=== PATIENT | female | born 1970 | race Caucasian/White ===

== ENCOUNTER → 2019-12-29 09:10 | Outpatient (BNVA) | payer MEDICARE, SELFPAY | PROVIDERS: PCP Family Medicine; Visit Provider Orthopaedic Surgery | DX: M25.521 Pain in right elbow (principal); M19.021 Primary osteoarthritis, right elbow | CPT/HCPCS: 73080 ==

== ENCOUNTER → 2025-03-24 08:07 | Outpatient (BNVA) | payer MEDICARE, SELFPAY | PROVIDERS: PCP Nurse Practitioner; Visit Provider Nurse Practitioner | DX: M25.561 Pain in right knee (principal); M25.562 Pain in left knee; Z96.659 Presence of unspecified artificial knee joint; T84.84XA Pain due to internal orthopedic prosthetic devices, implants and grafts, initial encounter; G89.29 Other chronic pain; X58.XXXA Exposure to other specified factors, initial encounter | CPT/HCPCS: 73560; 73565; 99204 ==

== ENCOUNTER 2025-03-25 06:00 | Outpatient (RCR) | payer MEDICARE, SELFPAY | END 2025-04-18 23:59 | disposition home or self-care (01) | LOC: GPT 06:00 | PROVIDERS: PCP Nurse Practitioner; Visit Provider Nurse Practitioner | DX: M54.50 Low back pain, unspecified (principal) | CPT/HCPCS: 97110; 97112; 97140; 97161 ==

== ENCOUNTER 2025-04-07 06:00 | Outpatient (RCR) | payer MEDICARE, SELFPAY | END 2025-04-18 23:59 | disposition home or self-care (01) | LOC: GPT 06:00 | PROVIDERS: PCP Nurse Practitioner; Visit Provider Nurse Practitioner | DX: M25.561 Pain in right knee (principal); M25.562 Pain in left knee; G89.29 Other chronic pain | CPT/HCPCS: 97110; 97112; 97161 ==

== ENCOUNTER 2025-04-08 07:42 | Outpatient (CLI) | payer MEDICARE, SELFPAY ==
--- NOTE | 2025-04-08 08:00 | NM_ITS ---
WS: [id number] THREE-PHASE BONE SCAN HISTORY: Painful FLORENCIO TKA COMPARISON: Radiographs 03/24/2025 Patient is is injected with 25.3 mCi Tc99m HDP intravenously. Immediate angiographic phase imaging is performed over the area of concern. Static blood pool imaging also performed. Two-hour whole-body scintigrams performed in anterior and posterior projections. Additional large field of view imaging sub mitted as necessary. Angiographic and blood pool phase images of the knees are negative. Photopenic defects bilaterally from the total knee replacements. On the 2-hour delayed imaging there is a tiny focus of increased uptake involving the RIGHT knee associated with the patella. This is an moderate increased uptake and is probably related to arthritis or enthesopathy as seen on the radiographs. No convincing evidence for loosening or infection. Bilateral osteoarthritic uptake involving the ankles. Mild AC joint arthritis. No spine or rib abnormalities. Normal soft tissue uptake. Both kidneys are identified. NM/NM bone 3 phase 73409 IMPRESSION: 1. No evidence for osteomyelitis or cellulitis involving the knees. 2. Tiny focus of increased uptake involving the RIGHT patella. Very nonspecifi c and probably related to arthritis or enthesopathy as seen on radiograph.
== END 2025-04-08 07:43 | disposition home or self-care (01) ==
LOC: RAD 07:48
PROVIDERS: PCP Nurse Practitioner; Visit Provider Nurse Practitioner
DX: T84.84XA Pain due to internal orthopedic prosthetic devices, implants and grafts, initial encounter (principal); Z96.653 Presence of artificial knee joint, bilateral
CPT/HCPCS: 78315; A9561

== ENCOUNTER 2025-04-19 06:30 | Outpatient (RCR) | payer MEDICARE, SELFPAY | END 2025-05-18 23:59 | disposition home or self-care (01) | LOC: GPT 06:30 | PROVIDERS: PCP Nurse Practitioner; Visit Provider Nurse Practitioner | DX: M25.561 Pain in right knee (principal); M25.562 Pain in left knee; G89.29 Other chronic pain | CPT/HCPCS: 97110; 97140 ==

== ENCOUNTER 2025-04-19 06:30 | Outpatient (RCR) | payer MEDICARE, SELFPAY | END 2025-05-18 23:59 | disposition home or self-care (01) | LOC: GPT 06:30 | PROVIDERS: PCP Nurse Practitioner; Visit Provider Nurse Practitioner | DX: M54.50 Low back pain, unspecified (principal) | CPT/HCPCS: 97110; 97140 ==

== ENCOUNTER → 2025-04-23 08:18 | Outpatient (BNVA) | payer MEDICARE, SELFPAY | PROVIDERS: PCP Nurse Practitioner; Visit Provider Nurse Practitioner | DX: M25.561 Pain in right knee (principal); M25.562 Pain in left knee; G89.29 Other chronic pain | CPT/HCPCS: 99214 ==

== ENCOUNTER → 2025-06-04 09:40 | Outpatient (BNVA) | payer MEDICARE, SELFPAY | PROVIDERS: PCP Nurse Practitioner; Visit Provider Nurse Practitioner | DX: M25.562 Pain in left knee (principal); G89.29 Other chronic pain; Z96.659 Presence of unspecified artificial knee joint | CPT/HCPCS: 99214 ==

== ENCOUNTER → 2025-06-28 08:55 | Outpatient (BNVA) | payer MEDICARE, SELFPAY | PROVIDERS: PCP Nurse Practitioner; Visit Provider Nurse Practitioner | DX: Z01.818 Encounter for other preprocedural examination (principal); T84.093A Other mechanical complication of internal left knee prosthesis, initial encounter; Z96.652 Presence of left artificial knee joint; Y79.2 Prosthetic and other implants, materials and accessory orthopedic devices associated with adverse incidents | CPT/HCPCS: 20610; 36415; 73560; 73565; 80053; 81001; 85025; 99214 ==

== ENCOUNTER 2025-07-06 15:26 | Outpatient (CLI) | payer MEDICARE, SELFPAY ==
--- NOTE | 2025-07-06 16:15 | CT_ITS ---
WS: [id number] CT LEFT KNEE, NONCONTRAST [facility] TECHNIQUE: Noncontrast CT of the LEFT knee to include the LEFT hip and ankle. CLINICAL INFORMATION: PER [facility] PROTOCOL DLP: 987.[address] scans at [facility] use at least one of these dose optimization techniques: automated exposure control; mA and/or kV adjustment per patient size (includes targeted exams where dose is matched to clinical indication); or iterative reconstruction. FINDINGS: Prior postoperative changes bilateral TKAs. Degenerative arthritis sacroiliac joints. Mild to moderate degenerative narrowing both hips. Moderate LEFT suprapatellar effusion. Postoperative changes LEFT TKA with patellar resurfacing. CT/CT knee LT [facility] [id number] IMPRESSION: Images obtained for preoperative purposes.
== END 2025-07-06 15:27 | disposition home or self-care (01) ==
LOC: RAD 15:27
PROVIDERS: PCP Nurse Practitioner; Visit Provider Specialist
DX: Z96.653 Presence of artificial knee joint, bilateral (principal); T84.093A Other mechanical complication of internal left knee prosthesis, initial encounter; X58.XXXA Exposure to other specified factors, initial encounter; Z98.890 Other specified postprocedural states; M46.1 Sacroiliitis, not elsewhere classified; M16.0 Bilateral primary osteoarthritis of hip; M25.462 Effusion, left knee
CPT/HCPCS: 73700

== ENCOUNTER 2025-07-20 16:12 | Inpatient (IN) | payer MEDICARE, SELFPAY ==
[2025-07-20] VITALS (14 sets, daily range): BP systolic 84–115; BP diastolic 58–87; PULSE 88–108; RESP 9–18; TEMP 36.3–37.5; O2SAT 94–99; BMI 36.6
--- NOTE | 2025-07-20 10:27 | W.PM.OPSUD ---
Surgery/Procedure H&P Update DATE OF PROCEDURE: July 20, 2025 DATE H&P PERFORMED: 06/28/25 H&P UPDATE INFORMATION: I have reviewed H&P completed within last 30 days, I have examined patient prior to procedure, No changes to prior documentation, H&P to be scanned into chart and Risks and benefits of the procedure reviewed PLANNED PROCEDURE: Operation Date: 07/20/25 11:55 Proposed Procedures p Total Knee Arthroplasty Revision(Left) - Ena Coppola MD s Casey Robot Total Knee Arthroplasty Robotic Total Knee Replacement(Left) - Ena Coppola MD Related Problem List Diagnoses 1. Chronic knee pain after total replacement of left knee joint: 2. Failed total left knee replacement, initial encounter: Qualifiers: Encounter type: initial encounter
[2025-07-20] MEDS: acetaminophen 1,000 MG/100 ML PIGGYBACK 400 MG IV ×2 (10:37→21:38)
--- NOTE | 2025-07-20 10:50 | ANES.PREANE2 ---
Pre-Anesthetic Assessment Height/Weight: Height 1.63 m Weight 96.615 kg Temp Pulse Resp BP Pulse Ox O2 Del Method 97.4 F L 88 18 106/87 99 Room Air 07/20/25 10:27 07/20/25 10:27 07/20/25 10:27 07/20/25 10:27 07/20/25 10:27 07/20/25 10:27 Operation Date: 07/20/25 11:55 Proposed Procedures p Total Knee Arthroplasty Revision(Left) - Ena Coppola MD s Casey Robot Total Knee Arthroplasty Robotic Total Knee Replacement(Left) - Ena Coppola MD Familial anesthetic complications: None Was Beta Shahrzad taken within 24 hours: N/A Was Clonidine taken within 24 hours: N/A Last intake: Intake Last Liquid Date 07/19/25 Last Liquid Time 22:00 Last Solid Date 07/19/25 Last Solid Time 22:00 Social Tobacco and No alcohol Exam alert, oriented x 3, clear to auscultation bilaterally and regular rate & rhythm Airway Mallampati: Class IV Dentition: false CV/HEM Hypertension Metabolic Hyperlipidemia and Morbid Obesity Neuropsych Seizure (conversion d/o - none in years) Anesthetic Plan ASA status: 3 Anesthesia: General Risk of > 500 ml blood loss (7ml/kg in children): No Medications/Allergies Home Medications ?Medication ?Instructions ?Recorded ?Confirmed ?Last Taken ?Type aspirin 81 mg tablet,delayed 81 mg PO DAILY 10/01/19 07/19/25 07/12/25 History release (Adult Aspirin Regimen) furosemide 20 mg tablet 20 mg PO DAILY 10/01/19 07/19/25 07/19/25 History metoprolol tartrate 50 mg tablet 50 mg PO BID 10/01/19 07/20/25 07/20/25 History nitroglycerin 0.4 mg sublingual 0.4 mg sublingual Q5M PRN Chest 10/01/19 07/19/25 Unknown History tablet Pain potassium chloride 10 mEq 10 meq PO DAILY 10/01/19 07/19/25 07/19/25 History tablet,extended release (Klor-Con) ropinirole 0.5 mg tablet 0.5 mg PO DAILY 10/01/19 07/20/25 07/20/25 History meloxicam 7.5 mg tablet 7.5 mg PO DAILY #90 tabs 03/29/25 07/19/25 07/12/25 Rx amlodipine 5 mg tablet 5 mg PO DAILY 07/19/25 07/20/25 07/20/25 History rosuvastatin 20 mg tablet 20 mg PO DAILY 07/19/25 07/19/25 07/19/25 History semaglutide 2 mg/dose (8 mg/3 mL) 2 mg SUBCUT .WEEKLY 07/19/25 07/19/25 07/11/25 History subcutaneous pen injector (Ozempic) Allergies Allergy/AdvReac Type Severity Reaction Status Date / Time codeine Allergy ALGY-Swell Verified 07/19/25 11:19 Lip/Tongue/Throat lisinopril Allergy ALGY-Swell Verified 07/19/25 11:19 Lip/Tongue/Throat Current Medications Generic Name Dose Route Start Last Admin Trade Name Freq PRN Reason Stop Dose Admin Sodium Chloride 1,000 mls @ 30 mls/hr 07/20/25 10:15 07/20/25 10:36 Sodium Chloride 0.9% IV 07/21/25 10:14 30 mls/hr .Q24H TIGRE Administration PFSH Anesthesia Medical History (Updated 07/20/25 @ 10:31 by Ena Coppola MD) History of myocardial infarction Essential hypertension Surgical History History of knee replacement, total Surgery: Right and Left total knee arthroplasties in 2018. (4-6 months apart) Surgeon: Dr. Anil Harrison MD in [place], [place] Family History Mother Heart disease Social History Smoking and tobacco/nicotine status: never used tobacco/nicotine Alcohol intake: current Alcohol intake frequency: holidays/special occasions only
[2025-07-20] MEDS: tranexamic acid 1,000 mg/10mL SDV 1000 MG IV (13:27)
[2025-07-20] MEDS: BUPivacaine liposome 13.3 mg/mL SDV 20 mL 266 MG INJECTION (14:45)
[2025-07-20] MEDS: BUPivacaine 0.5% INJ 10 mL 20 ML INJECTION (14:45)
[2025-07-20] MEDS: ceFAZolin 2,000 mg SDV 2000 MG IVP ×2 (15:53→19:35)
[2025-07-20] MEDS: ceFAZolin 1,000 mg SDV 1000 MG (15:56)
[2025-07-20 16:22] LABS: Hematocrit 36.0 % (36-47); Hemoglobin 12.20 g/dL (11.27-16.99)
[2025-07-20 17:11] LABS: Hematocrit 31.4 % (36-47); Hemoglobin 10.40 g/dL (11.27-16.99); Mean Corpuscular HGB Conc 33.1 g/dL (30-55); Mean Corpuscular Hemoglobin 31.8 pg (27-33); Mean Corpuscular Volume 96.0 fl (85-98); Nucleated Red Blood Cells % 0 %; Platelet Count 312 10^3/cmm (157-399); Red Blood Count 3.27 10^6/uL (3.85-5.65); White Blood Count 18.27 10^3/uL (3.29-11.43)
--- NOTE | 2025-07-20 17:16 | PC.NURSE ---
Benjie, patient's family member, notified via phone of surgical status
[2025-07-20 18:07] LABS: Hematocrit 30.1 % (36-47); Hemoglobin 9.90 g/dL (11.27-16.99)
--- NOTE | 2025-07-20 18:49 | P.OP_ITS ---
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 Lysis of the lateral femoral condyle. Procedure done: Left total knee revision including removal of cemented femoral and tibial components with revision to a total stabilizer left total knee arthroplasty, deepa ented Implants: The [place] total knee system with a size 3 universal cemented triathlon tibial baseplate with a tibial symmetric cone augment size A and a fluted noncemented stem size 10 mm x 100 mm, triathlon X3 total stabilizer plus tibial insert size 3 x 13 mm. A size 4 triathlon total stabilizer femoral component with size 4 x 10 mm distal femoral augments medially and laterally, and size 4 x 5 mm posterior femoral augments medially and laterally with a size 16 x 100 mm fluted noncemented stem. Polyethylene patellar implant was maintained. Specimens removed/disposition: Left knee synovium as well as discolored left knee synovium sent for pathology and culture, femoral and tibial bone sent to pathology and for culture Pathology: Left knee synovium, femoral and tibial bone for microscopic evaluation Surgeon: Ena Coppola MD Digital Music Instructor: Funmi Melo, nurse practitioner who services were required for retraction, exposure, closure, and completion of the surgical procedure Anesthesia: General (Intubated, ASA 3) Estimated blood loss (mL): 1,500 Tourniquet time (min): 0 (Not utilized) IV fluids (mL): 2,000 (With albumin 250 cc and 2 units of packed red blood cells) Urine output (mL): 200 Complications: None Findings: Significant synovitis and areas of discolored synovitis. No evidence of infection. Femoral component appeared somewhat loose. Tibial component was well-fixed. Patellar component was intact with no need to revise. Condition: stable Disposition: PACU (Then to floor for postoperative rehabilitation and pain management) Brief History: This 55-year-old woman underwent bilateral total knee arthroplasties with Dr. Harrison in [place] several years ago. The patient states that she never had relief of pain from her knees, but her left knee was much worse than her right. After discussion, the patient noted that she was miserable and wished to proceed with operative interventions if indicated. She had a workup including a triphase bone scan. She also had Synovasure DNA for possible bacterial presents. These markers were negative. At the time of obtaining fluid for the Synovasure kit, I injected lidocaine, and the patient had complete relief of her pain. After this, we proceeded to discuss revision total knee arthroplasty with removal of components and revision to a Zac total knee arthroplasty. Risks and complications were discussed in detail with the patient. Consents were signed and questions were answered. She was scheduled to proceed with surgery. Procedure: The patient was brought to the operating theater, and after undergoing adequate general anesthesia, intubated, ASA 3, the left lower extremity was prepped with Dura-Prep and draped in usual fashion following placement of a tourniquet high on the leg. The leg was then draped free.? A surgical pause was performed. At the time of the surgical pause, we confirmed the site and side of surgery. Additionally, we confirmed the prophylactic antibiotic, Ancef 2 g, was held until after intraoperative cultures were obtained. Transexemic acid 1 g with an additional gram of Transexemic acid being given at the end of the surgical procedure. The availability of equipment was confirmed, and the patient's identity was verbalized as well. Following the surgical pause, an incision was made through the patient's prior incision continuing proximally and distally as necessary to allow access to the knee joint. Dissection continued through skin and soft tissues using a scalpel. Hemostasis was obtained using electrocautery. The skin incision was followed by a median parapatellar arthrotomy. Once the knee joint was entered, there was noted to not be significant fluid, but there was significant synovitis and there were areas of a brownish discolored synovitis. Synovitis as well as the brownish colored synovial material was obtained and sent to pathology in 2 separate specimens and also was to be cultured. With some difficulty, the scarring within the knee was removed. We worked to remove scarring around the patellar tendon and also over the anterior femur as well as medially and laterally. This was required to be able to expose the knee joint. Once the soft tissues were removed, the patella was more pliable and able to be placed laterally to allow access to the knee joint. The femur was then exposed. The tibial tray was removed, and attention was directed to the femoral component. A combination of osteotomes and an oscillating saw was used to remove the femoral component. These were passed between the femur and the bone through the cement. Laterally, there was significant softness to the bone with evidence of bony lysis. The femoral component was removed with minimal bone loss. The central cement plug was also removed. After the femur had been thus prepared, attention was directed to the tibia. With significant difficulty, but in a similar fashion, the tibial tray was also loosened from bone with a combination of osteophytes and an oscillating saw. It was quite difficult to get the tibial tray removed. But again, it was removed with minimal bone loss. At that point, cultures of the femoral bone and tibial bone were obtained as well as specimen sent to pathology. At this point, cement was also removed from the proximal tibia which had been around the stem. Preparation was then made for the revision components. Initially, attention was directed to the proximal tibia. We were able to pass a reamer into the proximal tibia. This was then reamed slightly larger and we were able to ream to a size 10 reamer. The size 10 reamer was left in position. It was noted to be quite secure. The tibial jig was then passed over the top of the reamer and a freshening cut was made in the proximal tibia to smooth the surface and prepare good bone for medical receptionist of the revision component. While the reamer was in place, we also reamed to allow for the symmetric cone augment. We were only able to ream to a size A. Trial augment was placed into position. The proximal tibia was measured and measured a size 3, but the removed tray had been a size 4. The size 3 tray was then pinned into position and after removal of the reamer, the proximal tibia was reamed and broached. Following this, attention was directed to the femur. Once again, a reamer was placed into the distal femur. We were able to ream to a size 16. Once this reamer was in place, the distal femoral jig was placed in position. The distal femur was freshened and the four-way cutting block was then placed into position. This cutting block included anterior posterior and chamfer cuts. We were able to make these cuts, but this jig demonstrated that we did not need a posterior femoral augment size 5 mm. This construct was placed into position. Trial reductions were accomplished with this construct with tibia, and there was a slight imbalance between the extension and flexion gaps, therefore, initially, we placed 5 mm distal femoral augments both medially and laterally but subsequently increased them to 10 mm augments. With a 10 mm augments and placed distally and the 5 mm augments posteriorly further trial reduction was accomplished. With a size 13 mm posterior stabilized subsequently changed to a total stabilizer component, we had excellent extension, full flexion, good tracking of the patella, and it was felt that these were the appropriate components. At that point, trial components were removed. But prior to removal, we did evaluate the patella and decision was made to not proceed with patellar revision. A large amount of scar tissue was removed from around the patella and it is likely that this will manage the patient's anterior pain. It was felt that the risk of removal of the patella and complication from this was much greater than leaving the patella as it did not appear loose. The components were obtained and were assembled on the table prior to mixing cement. The surfaces were irrigated in preparation for cementing. All surfaces were dried. Following this, cement was mixed. The tibia was cemented into position followed by the femur. These were held in place until the cement had fully cured. We did extend the knee for the curing process once the tibial insert was in place. The tibial insert was a 13 mm total stabilizer. Once the cement fully cured, the knee was placed through range of motion. The patella was still noted to track nicely. It was also sitting in appropriate position. Services were evaluated for excess cement, and finding none, the wound was copiously irrigated. The post for the total stabilizer components was placed into position prior to closure. The knee was irrigated with Betadine, Exparel was injected, and closure was accomplished. Attention was then directed to closure. Closure was accomplished with 0 Vicryl in the fascial tissues supplemented with #1 Monocryl STRATAFIX.? Following this, a 2-0 Monocryl STRATAFIX was used in the subcutaneous tissues, and the skin was closed with 3-0 Monocryl STRATAFIX. A sterile dressing was then placed consisting of Dermabond Prineo, Op Site, sterile soft roll, and an Sherif wrap. The patient was returned the Recovery Room in a satisfactory condition. X-rays were obtained there.? Specimens are outlined above and include multiple synovial and bone specimens for pathology and for culture. The patient will be discharged to the floor for postoperative rehabilitation and pain management. Related Problem List Diagnoses 1. Chronic knee pain after total replacement of left knee joint: 2. Failed total left knee replacement, initial encounter: 3. History of total bilateral knee replacement:
--- NOTE | 2025-07-20 19:21 | XRR_ITS ---
PROCEDURE INFORMATION: Exam: XR Left Knee Exam date and time: 07/20/2025 8:19 PM Age: 55 years old Clinical indication: Device placement; Joint replacement hardware; Prior surgery; Surgery date: Post-operative (0-2 days); Surgery type: Post op lt knee; Additional info: Status post left total knee arthroplasty revision TECHNIQUE: Imaging protocol: Radiologic exam of the left knee. Views: 1 or 2 views. COMPARISON: CT knee LT [facility] [id number] 07/06/2025 4:01 PM FINDINGS: Bones/joints: Status post total left knee arthroplasty revision with new hardware with normal anatomic alignment and expected postoperative changes. Soft tissues: Normal. XR/XR knee LT 1-2V [id number] IMPRESSION: Status post total left knee arthroplasty revision with new hardware with normal anatomic alignment and expected postoperative changes.
--- NOTE | 2025-07-20 20:05 | ANE.PACU2 ---
Inpatient post-anesthesia follow up: Airway intact: Yes Vital signs: Temperature 97.7 F Pulse Rate 92 Respiratory Rate 18 Blood Pressure 110/74 Pulse Oximetry 95 Oxygen Delivery Me thod Nasal Cannula Oxygen Flow Rate 0.5 Fraction of Inspir ed Oxygen Hydration adequate: Yes Nausea and vomiting: No Pain level: 2 Mental status: Baseline
--- NOTE | 2025-07-20 20:13 | PC.NURSE ---
2005 - accepted into room 271 with Francisca at side - pt at 3L NC 97% - pulse 107 - temp 97.6 - BP 97/60 - no distress in pt noted upon this nurse exiting care - left knee dressing c/d/i with first ice in place - pt alert and orientated at present time
[2025-07-20] MEDS: tranexamic acid 1,000 MG/100 ML PREMIX 600 MG IV (22:08)
[2025-07-20] MEDS: chlorhexidine gluconate 0.12% Btl 473 mL 30 ML MUCOUS MEM (22:13)
[2025-07-20] MEDS: oxyCODONE 5 mg IR Tab/Cap PO (23:02)
--- NOTE | 2025-07-20 23:29 | PM.CONSULT ---
Providers/Reason For Consult Consulting Physician/Specialty*: Tristan Elliott MD Reason for Consult*: Medical co-management Requesting Physician: Ena Coppola MD Attending Physician: Ena Coppola MD Primary Care Provider: BUNNY King History of Present Illness History of Present Illness Nhung Buck is a 55 year old female with CAD and chronic knee pain who presented to out facility for elective left total knee replacement on 07/20/25. During surgery, patient had reported EBL of 1500cc. Hospitalist consulted was request for medical co-management. Patient reported no concerning symptoms prior to surgery that were unrelated to her knee. During my encounter, patient had no complaints. She denies any sensation of weakness of dizziness. Medications/Allergies Home Medications ?Medication ?Instructions ?Recorded ?Confirmed ?Last Taken ?Type aspirin 81 mg tablet,delayed 81 mg PO DAILY 10/01/19 07/19/25 07/12/25 History release (Adult Aspirin Regimen) furosemide 20 mg tablet 20 mg PO DAILY 10/01/19 07/19/25 07/19/25 History metoprolol tartrate 50 mg tablet 50 mg PO BID 10/01/19 07/20/25 07/20/25 History nitroglycerin 0.4 mg sublingual 0.4 mg sublingual Q5M PRN Chest 10/01/19 07/19/25 Unknown History tablet Pain potassium chloride 10 mEq 10 meq PO DAILY 10/01/19 07/19/25 07/19/25 History tablet,extended release (Klor-Con) ropinirole 0.5 mg tablet 0.5 mg PO DAILY 10/01/19 07/20/25 07/20/25 History meloxicam 7.5 mg tablet 7.5 mg PO DAILY #90 tabs 03/29/25 07/19/25 07/12/25 Rx amlodipine 5 mg tablet 5 mg PO DAILY 07/19/25 07/20/25 07/20/25 History rosuvastatin 20 mg tablet 20 mg PO DAILY 07/19/25 07/19/25 07/19/25 History semaglutide 2 mg/dose (8 mg/3 mL) 2 mg SUBCUT .WEEKLY 07/19/25 07/19/25 07/11/25 History subcutaneous pen injector (Ozempic) Allergies Allergy/AdvReac Type Severity Reaction Status Date / Time codeine Allergy KISHANY-Lauriell Verified 07/19/25 11:19 Lip/Tongue/Throat lisinopril Allergy ALGY-Swell Verified 07/19/25 11:19 Lip/Tongue/Throat Current Medications Generic Name Dose Route Start Last Admin Trade Name Freq PRN Reason Stop Dose Admin Celecoxib 200 mg 07/20/25 20:50 07/20/25 21:38 Celecoxib 200 Mg Capsule PO 200 mg Q12H TIGRE Administration Chlorhexidine Gluconate 30 ml 07/20/25 23:00 07/20/25 22:13 Chlorhexidine Gluconate 0.12% Btl 473 Ml MUCOUS MEM 30 ml QID TIGRE Administration Acetaminophen 1,000 mg in 100 mls @ 400 mls/hr 07/20/25 20:50 07/20/25 22:08 Acetaminophen IV 07/21/25 13:04 Infused Q8H TIGRE Infusion Oxycodone HCl 5 - 10 mg 07/20/25 20:50 07/20/25 23:02 Oxycodone 5 Mg Ir Tab/Cap PO 5 mg Q4H PRN Administration MODERATE TO SEVERE PAIN PFSH Acute PFSH: Medical History (Updated 07/21/25 @ 05:54 by Tristan Elliott MD) History of myocardial infarction Essential hypertension Surgical History (Updated 07/21/25 @ 05:54 by Tristan Elliott MD) History of total bilateral knee replacement Surgery: Right and Left total knee arthroplasties in 2018. (4-6 months apart) Surgeon: Dr. Anil Harrison MD in [place], [place] Family History Mother Heart disease Social History Smoking and tobacco/nicotine status: never used tobacco/nicotine Alcohol intake: current Alcohol intake frequency: holidays/special occasions only Vitals/I&O/Wt Last Vital Signs Temp 97.6 F 07/20/25 20:50 Pulse 106 H 07/20/25 20:50 Resp 16 07/20/25 23:02 BP 92/58 07/20/25 20:50 Pulse Ox 98 07/20/25 20:50 O2 Del Method Nasal Cannula 07/20/25 20:50 O2 Flow Rate 3 07/20/25 20:00 07/20/25 07/20/25 07/21/25 14:59 22:59 06:59 Intake Total 3300 / 3300 Output Total 1900 / 1900 Balance 1400 / 1400 Weight last 48 hrs Weight 96.615 kg Physical Exam Const: COMMON NORMALS: no acute distress and patient oriented x3 Resp: COMMON NORMALS: normal respiratory effort and No use of accessory muscles Cardio: OTHER: Tachycardic but regular. No MRG Extremity: OTHER: Left lower extremity is in an [place] wrap Neuro: COMMON NORMALS: patient oriented x3 Urinary Catheter Management: Keller: Cath Placed During This Visit: yes Urinary Catheter Date of Insertion: 07/20/25 Urinary Catheter Time of Insertion: 13:13 Data 07/20/25 17:52 Micro: Microbiology 07/20/25 15:51 Gram Stain - Final Bone 07/20/25 15:03 Gram Stain - Final Bone 07/20/25 14:16 Gram Stain - Final Knee - Left 07/20/25 14:15 Gram Stain - Final Knee - Left 07/20/25 13:57 Gram Stain - Final Knee - Left A&P Assessment and plan 1. Intraoperative hemorrhage of musculoskeletal structure complicating musculoskeletal procedure: - Patient with mild tachycardia and soft blood pressure. BP has normalized as of 0321 today but remains mildly tachycardic - Will hold her home furosemide and home antihypertensives given soft BP and blood loss - Okay to continue her other home medications - Follow CBC, transfuse if hgb drop below 7 or patient becomes symptomatic 2. Status post total left knee replacement: - Primary to manage Plan: Hospitalist will continue to follow PDMP PDMP Reviewed: Not Reviewed Coding Level of Care Code Acute Code for Chg Fwd Diagnoses Intraoperative hemorrhage of musculoskeletal structure complicating musculoskeletal procedure M96.810 Procedure type: musculoskeletal Surgical complication system/body Area: musculoskeletal system Status post total left knee replacement Z96.652 Laterality: left
[2025-07-21] VITALS (7 sets, daily range): BP systolic 102–123; BP diastolic 62–77; PULSE 91–107; RESP 16–18; TEMP 36.5–36.9; O2SAT 91–100
[2025-07-21] MEDS: ceFAZolin 2,000 mg SDV 2000 MG IVP ×2 (02:52→11:37)
[2025-07-21] MEDS: oxyCODONE 5 mg IR Tab/Cap PO ×2 (02:58→08:25)
[2025-07-21] MEDS: sennosides-docusate Tablet 2 TAB PO (04:48)
[2025-07-21] MEDS: multivitamin therapeutic Tablet 1 TAB PO (04:49)
[2025-07-21] MEDS: mupirocin oint 22 gm 1 APPLIC NASAL (04:49)
[2025-07-21] MEDS: chlorhexidine gluconate 0.12% Btl 473 mL 30 ML MUCOUS MEM ×2 (04:50→11:39)
[2025-07-21] MEDS: acetaminophen 1,000 MG/100 ML PIGGYBACK 400 MG IV ×2 (04:50→11:41)
[2025-07-21 06:15] LABS: Hematocrit 31.6 % (36-47); Hemoglobin 10.90 g/dL (11.27-16.99); Mean Corpuscular HGB Conc 34.5 g/dL (30-55); Mean Corpuscular Hemoglobin 32.2 pg (27-33); Mean Corpuscular Volume 93.5 fl (85-98); Nucleated Red Blood Cells % 0 %; Platelet Count 185 10^3/cmm (157-399); Red Blood Count 3.38 10^6/uL (3.85-5.65); White Blood Count 19.85 10^3/uL (3.29-11.43)
--- NOTE | 2025-07-21 06:40 | PC.NURSE ---
Addendum entered by Frnacisca Soto RN 07/21/25 08:09: Keller removal occurred at 0745 Original Note: Keller catheter removed, catheter intact. Patient tolerated well.
--- NOTE | 2025-07-21 08:38 | PC.CHAP ---
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 hop weigher visit [] Patient/Family/Request visit [] Outpatient visit [] Follow-up visit [] Physician referral [] Code/Alert [] Routine visit [] Staff referral [] Actively dying [x] Patient sleeping [] Family support [] [] Out of room [] Palliative care [] [] Receiving care in room [] Pre-surgical visit [] Trauma [] Long length of stay [] ICU visit [] Other: Relational/Emotional Strength [] Patient feels connected with others/family/visitors/staff [] Distress [] Loneliness/isolation [] Abandonment Spirituality of Patient [] Person of Yary [] Attends Pentecostal of their Yary [] Believes in Prayer [] Reads Bible or Confucianist materials [] There are Spiritual issues to be addressed 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 [] Prayer [] Active listening [] Non-anxious presence [] Spiritual/emotional support [] Crisis/trauma care [] Spiritual counseling [] Bereavement support [] Provided bereavement packet [] Provided Bible/devotional materials [] Provided toy/stuffed animal, coloring book to patient or family member [] Provided Communion [] Anointing/[place] [] Salvation [] Completed spiritual assessment [] Other: Impact on Illness or Injury [] Angry [] Fearful [] Anxious [] Often cries [] Exhaustion [] Unable to work [] Unable to attend druze [] Unable to walk/stand [] Unable to read [] Unable to drive [] Unable to eat/drink [] Unable to sleep [] Unable to be with family [] Patient intubated [] Other: Summary Time spent with patient
--- OUTSIDE RECORDS SUMMARY | 2025-07-21 09:34 | XMS_ITS | Clinical Summary ---
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 0 Active metoprolol tartrate (LOPRESSOR) 50 mg tablet Take 50 mg by mouth 2 times daily. 0 Active lisinopriL (PRINIVIL) 20 mg tablet Take 20 mg by mouth daily. 0 Active rOPINIRole (REQUIP) 1 mg tablet Take 1 mg by mouth 2 times daily. 0 Active furosemide (LASIX) 20 mg tablet Take 20 mg by mouth daily. 0 Active nitroglycerin (NITROSTAT) 0.4 mg Tablet, Sublingual Place 0.4 mg under tongue every 5 minutes as needed for Chest Pain. Active diclofenac sodium (VOLTAREN) 1 % gelIndications:Lef t elbow pain,Lateral epicondylitis of left elbow,Cubital tunnel syndrome, left Apply 4 Grams to affected area 4 times daily. 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 Cubital tunnel syndrome on left 02/02/2020 Lateral epicondylitis of left elbow 02/02/2020 Social History Tobacco Use Types Packs/Day Years Used Date Smoking Tobacco: Every Day Cigarettes Alcohol Use Standard Drinks/Week Comments Not Currently 0 (1 standard drink = 0.6 oz pur e alcohol) Comments Unknown Sex and Gender Information Value Date Recorded Sex Assigned at Not on file Legal Sex Female 2:58 PM CDT Gender Identity Not on file Sexual Orientation Not on file Last Filed Vital Signs Vital Sign Reading Time Taken Comments Blood Pressure 134/97 02/02/2020 10:43 AM CDT Pulse 89 02/02/2020 10:43 AM CDT Temperature - - Respiratory Rate - - Oxygen Saturation - - Inhaled Oxygen Concentration - - Weight 98.9 kg (218 lb) 02/02/2020 10:43 AM CDT Height 162.6 cm (5' 4 ) 02/02/2020 10:43 AM CDT Body Mass Index 37.42 02/02/2020 10:43 AM CDT Plan of Treatment Health Maintenance Due Date Last Done Comments DTAP/TDAP/TD VACCINES (1 - Tdap) 1990 HEPATITIS B VACCINES (1 of 3 - 19+ 3-dose series) 05/20 HPV/Cotest (21-29) 1992 CERVICAL CANCER SCREENING 2001 HPV/Cotest (30-65) 2001 PAP SMEAR 2001 BREAST CANCER SCREENING 2011 COLORECTAL SCREENING 2016 Colorectal Cancer Screening 2016 FIT-DNA Q 3 years 2016 FIT/FOBT Q 1 year 2016 Flex Sig/CT Colonography Q 5 years 2016 ZOSTER VACCINE (1 of 2) 2021 INFLUENZA VACCINE (#1) 2025 Insurance MEDICARE PART A AND B
--- OUTSIDE RECORDS SUMMARY | 2025-07-21 09:34 | XMS_ITS | Clinical Summary ---
Author Organization [facility] Address [address] 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 100 Gram 0 0 Active potassium chloride (KLOR-CON) 20 mEq Extended Release tablet Take 20 mEq by mouth daily. 0 Active furosemide (LASIX) 20 mg tablet Take 20 mg by mouth daily. 0 Active rOPINIRole (REQUIP) 1 mg tablet Take 1 mg by mouth 2 times daily. 0 Active nitroglycerin (NITROSTAT) 0.4 mg Tablet, Sublingual Place 0.4 mg under tongue every 5 minutes as needed for Chest Pain. 0 Active lisinopriL (PRINIVIL) 20 mg tablet Take 20 mg by mouth daily. 0 Active metoprolol tartrate (LOPRESSOR) 50 mg tablet Take 50 mg by mouth 2 times daily. 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
--- NOTE | 2025-07-21 11:36 | P.PN_ITS ---
Subjective 2 Subjective: PMH of HTN, CAD, HLD, Nhung Buck is a 55 yo F with chronic left knee pain, s/p left robotic rotal knee replacement on 07/20/2025. Today POD #1. Her surgical course was complicated by intraoperative hemorrhage with EBL of 1500 ml. Hospitalist service following for medical management. Patient doing well. No questions or concerns voiced. States, I want to go home. Notes pain to be controlled. Neurovascular status intact. Denies fever, chills, CP, palpitations SOA, abdominal pain and gastrointestinal distress. BP improved overnight. Tachycardia improved, but HR still in upper 90s. ASA 325 mg was started today. On cefazolin. Labs 07/21/2025 Hemogram WBC 19.85 RBC 3.38 PLT 185 Hgb 10.9 No chemistry panel available, last 06/28/2025. VS stable. She was hypotensive (SBP 92-97), however BP improved overnight Vitals/I&O/Wt Last Vital Signs Temp 97.7 F 07/21/25 07:28 Pulse 92 07/21/25 07:51 Resp 18 07/21/25 08:25 BP 110/74 07/21/25 07:28 Pulse Ox 95 07/21/25 07:51 O2 Del Method Nasal Cannula 07/21/25 07:51 O2 Flow Rate 0.5 07/21/25 08:00 07/20/25 07/21/25 07/21/25 22:59 06:59 14:59 Intake Total 3300 / 3300 340 / 3640 987.5 / 987.5 Output Total 1900 / 1900 1000 / 2900 Balance 1400 / 1400 -660 / 740 987.5 / 987.5 Weight last 48 hrs Weight 100.272 kg Weight 100.272 kg Weight 96.615 kg Physical Exam 2 Narrative: Constitutional: NAD Head: NC/AT Eyes: PERRLA, EOMI Ears: Normal external ears. Hearing intact to normal voice. Nose: Normal external nose. No epistaxis. Throat: Dry MM Respiratory: CTAB. No accessory muscle use. On room air. Cardiovascular: Regular. No murmur. Extremities: No edema bilaterally Gastrointestinal: Soft. NT. ND. +BS Genitourinary: No de luna catheter Musculoskeletal: LLE with left knee / extremity in [place] wrap Limited ROM at right knee, expected post operative course. Skin: Unable to visualize due to surgical wrapping in place Urinary Catheter Management: De Luna: Cath Placed During This Visit: yes Urinary Catheter Date of Insertion: 07/20/25 Urinary Catheter Time of Insertion: 13:13 Data 07/21/25 12:15 07/21/25 12:15 Micro: Microbiology 07/20/25 15:51 Gram Stain - Final Bone 07/20/25 15:03 Gram Stain - Final Bone 07/20/25 14:16 Gram Stain - Final Knee - Left 07/20/25 14:15 Gram Stain - Final Knee - Left 07/20/25 13:57 Gram Stain - Final Knee - Left A&P Assessment and plan 1. Intraoperative hemorrhage of musculoskeletal structure complicating musculoskeletal procedure: 2. Status post total left knee replacement: 3. Status post revision of total replacement of left knee: Plan: # Chronic left knee pain s/p left total knee replacement 07/20, today POD #1 - Ortho surgery primary, managing - On post operative abx, cefazolin - Pain control per ortho tylenol 1000 mg TID (scheduled) celecoxib 200 mg Q12H (scheduled) Oxycodone IR 5-10 mg Q4H prn - On bowel regimen - DVT PPx ASA 325 mg daily (started 07/21/25) - Will likely need home health at discharge (per ortho recommendations) # Intraoperative Hemorrhage # Acute blood loss Hgb 14.5 (06/28/25) and 12.2 (07/20/25). S/p EBL ~1500 ml intraoperatively (07/20) - Hgb stable, continue to trend 12.2 (07/20) -> 10.4 (07/20) -> 9.9 (07/20) -> 10.9 (07/21) - Consider blood transfusion for Hgb </ 7 - On iron polysaccharide complex 150 mg BID, continue - SBP low 100s and HR upper 90s, will give her 1L NS IVF bolus - will check chemistry panel (last 06/2025 was abnormal) and another Hgb if stable, then could potentially be discharged # Leukocytosis post-operative stress vs infection - on abx, cefazolin - intraoperative cultures pending - trend wbc WBC 10.5 (06/28/25) -> 18.27 (07/20) -> 19.85 (07/21) # Primary HTN SBP low 100s, soft, stable, mildly improved from last night - Continue trending - CONTINUE HOLDING home BP meds (amlodipine, metoprolol, furosemide) # HLD - On atorvastatin 80 mg QD, continue # 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 If stable, she is anticipated to discharge today. Coding Level of Care Code 75292 Diagnoses Intraoperative hemorrhage of musculoskeletal structure complicating musculoskeletal procedure M96.810 Procedure type: musculoskeletal Surgical complication system/body Area: musculoskeletal system Status post total left knee replacement Z96.652 Laterality: left Status post revision of total replacement of left knee Z96.652
[2025-07-21 12:23] LABS: Hemoglobin 10.00 g/dL (11.27-16.99)
[2025-07-21 12:44] LABS: Blood Urea Nitrogen 19 mg/dL (6-20); Calcium 7.2 mg/dL (8.5-10.5); Carbon Dioxide 19 mmol/L (22-29); Chloride 98 mmol/L (98-107); Glucose 358 mg/dL (65-115); Osmolality Calculated 287 mOsm/kg (285-295); Sodium 130 mmol/L (136-145)
[2025-07-21 12:45] LABS: Anion Gap 17.3 (5-19); Potassium 4.3 mmol/L (3.5-5.1)
--- NOTE | 2025-07-21 14:48 | PC.NURSE ---
D/C pending meds to bed.
--- NOTE | 2025-07-21 16:21 | P.DS_ITS ---
Discharge Providers Date of Admission: 07/20/25 16:12 Date of Discharge: July 21, 2025 Attending Provider at Admission: Ena Coppola MD Attending Provider at Discharge: Ena Coppola MD Primary Care Provider: BUNNY King Diagnoses at Discharge Discharge Diagnosis 1. Status post revision of total replacement of left knee: 2. Chronic knee pain after total replacement of left knee joint: Reason for Visit Reason for Visit: T84.849K Brief History: This 55-year-old woman underwent bilateral total knee arthroplasties with Dr. Harrison in [place] several years ago. The patient states that she never had relief of pain from her knees, but her left knee was much worse than her right. After discussion, the patient noted that she was miserable and wished to proceed with operative interventions if indicated. She had a workup including a triphase bone scan. She also had Synovasure DNA for possible bacterial presents. These markers were negative. At the time of obtaining fluid for the Synovasure kit, I injected lidocaine, and the patient had complete relief of her pain. After this, we proceeded to discuss revision total knee arthroplasty with removal of components and revision to a Zac total knee arthroplasty. Risks and complications were discussed in detail with the patient. Consents were signed and questions were answered. She was scheduled to proceed with surgery. Physical Exam Const: COMMON NORMALS: no acute distress, average body habitus, patient oriented x3 and alert GENERAL APPEARANCE: cooperative and comfortable ORIENTATION/CONSCIOUSNESS: Yes awake HENMT: COMMON NORMALS: normocephalic and atraumatic HEAD & SCALP: normocephalic and atraumatic Eye: GENERAL EYE: appearance normal, both eyes and all related structures Chest: COMMONS NORMALS: normal inspection of the chest Resp: COMMON NORMALS: normal respiratory effort EFFORT & INSPECTION: Yes able to speak in complete sentences and Yes symmetric chest movement Extremity: LEFT LOWER EXTREMITY: Yes knee joint (Large outer dressing is removed) Left knee: Yes inspection (No significant ecchymosis), Yes palpation (No evidence of DVT), Yes ROM (Flexes to approximately 60 degrees, able to straight leg raise) and Yes neurovascular exam (Intact distally) Neuro: COMMON NORMALS: patient oriented x3 SENSORIUM/ORIENTATION: Yes alert Psych: COMMON NORMALS: mental status grossly normal APPEARANCE: Yes grossly normal ATTITUDE: Yes calm and Yes engaged ATTENTION/CONCENTRATION: Yes attention grossly intact Skin: COMMON NORMALS: no rashes or lesions noted GENERAL SKIN EXAM: no rashes or lesions noted Urinary Catheter Management: Keller: Cath Placed During This Visit: yes Urinary Catheter Date of Insertion: 07/20/25 Urinary Catheter Time of Insertion: 13:13 Discharge Data Studies Completed and Pending Completed Studies During Hospitalization Category Date Time Status XR knee LT 1-2V [id number] Routine Exams 07/20/25 19:21 Completed Pending at discharge Category Date Time Status Anaerobic Culture Routine Lab 07/20/25 13:57 Results Tissue Culture and Gram Stain Routine Lab 07/20/25 13:57 Results Tissue Culture and Gram Stain Routine Lab 07/20/25 14:15 Results Tissue Culture and Gram Stain Routine Lab 07/20/25 14:16 Results Tissue Culture and Gram Stain Routine Lab 07/20/25 15:03 Results Tissue Culture and Gram Stain Routine Lab 07/20/25 15:51 Results Radiology Impressions Knee X-Ray 07/20/25 19:21 IMPRESSION: Status post total left knee arthroplasty revision with new hardware with normal anatomic alignment and expected postoperative changes. Laboratory Results WBC 19.85 10^3/uL (3.29-11.43) H 07/21/25 05:38 RBC 3.38 10^6/uL (3.85-5.65) L 07/21/25 05:38 Hgb 10.00 g/dL (11.27-16.99) L 07/21/25 12:15 Hct 31.6 % (36-47) L 07/21/25 05:38 MCV 93.5 fl (85-98) 07/21/25 05:38 MCH 32.2 pg (27-33) 07/21/25 05:38 MCHC 34.5 g/dL (30-55) 07/21/25 05:38 RDW 15.3 % (12.1-15.1) H 07/21/25 05:38 Plt Count 185 10^3/cmm (157-399) D 07/21/25 05:38 MPV 9.8 fL (7.4-10.4) 07/21/25 05:38 Neut % (Auto) 89.2 % 07/21/25 05:38 Lymph % (Auto) 5.6 % 07/21/25 05:38 Dickenson % (Auto) 4.6 % 07/21/25 05:38 Eos % (Auto) 0.0 % 07/21/25 05:38 Baso % (Auto) 0.1 % 07/21/25 05:38 Neut # (Auto) 17.71 10^3/uL (1.8-7.7) H 07/21/25 05:38 Lymph # (Auto) 1.1 10^3/uL (0.8-4.8) 07/21/25 05:38 Dickenson # (Auto) 0.9 10^3/uL (0.2-0.9) 07/21/25 05:38 Eos # (Auto) 0.0 10^3/uL (0.0-0.8) 07/21/25 05:38 Baso # (Auto) 0.0 10^3/uL (0.0-0.1) 07/21/25 05:38 Nucleated RBC % (auto) 0 % 07/21/25 05:38 Nucleated RBCs # 0.0 /100WBC 07/21/25 05:38 Sodium 130 mmol/L (136-145) L 07/21/25 12:15 Potassium 4.3 mmol/L (3.5-5.1) 07/21/25 12:15 Chloride 98 mmol/L (98-107) 07/21/25 12:15 Carbon Dioxide 19 mmol/L (22-29) L 07/21/25 12:15 Anion Gap 17.3 (5-19) 07/21/25 12:15 BUN 19 mg/dL (6-20) 07/21/25 12:15 Creatinine 0.8 mg/dL (0.5-0.9) 07/21/25 12:15 GFR Calculation 74.7 mL/min (90-130) L 07/21/25 12:15 Glucose 358 mg/dL (65-115) H 07/21/25 12:15 Calculated Osmolality 287 mOsm/kg (285-295) 07/21/25 12:15 Calcium 7.2 mg/dL (8.5-10.5) L 07/21/25 12:15 Blood Type A Positive 07/20/25 15:30 Rho(D) Type Rh positive 07/20/25 15:30 Antibody Screen Negative 07/20/25 15:30 Crossmatch See Detail 07/20/25 15:30 Vitals Last Vital Signs Temp 97.7 F 07/21/25 11:38 Pulse 99 07/21/25 11:38 Resp 16 07/21/25 11:38 BP 105/72 07/21/25 11:38 Pulse Ox 91 07/21/25 11:38 O2 Del Method Room Air 07/21/25 11:38 O2 Flow Rate 0.5 07/21/25 08:00 Discharge Plan Discharge Patient Disposition: Home Condition: Stable Prescriptions: New celecoxib 200 mg Capsule 200 mg PO 1XD 30 Days Qty: 30 0RF acetaminophen 500 mg Tablet 1,000 mg PO Q8H 15 Days Qty: 90 0RF aspirin 325 mg Tablet,Delayed Release (Dr/Ec) 325 mg PO DAILY 30 Days Qty: 30 0RF oxycodone 5 mg Tablet 5 mg PO Q4H PRN (Reason: Moderate To Severe Pain) 7 Days Qty: 40 0RF Continued metoprolol tartrate 50 mg tablet 50 mg PO BID potassium chloride [Klor-Con 10] 10 mEq tablet extended release 10 meq PO DAILY nitroglycerin 0.4 mg tablet, sublingual 0.4 mg SUBLINGUAL Q5M PRN (Reason: Chest Pain) ropinirole 0.5 mg tablet 0.5 mg PO DAILY Rx Instructions: at bedtime furosemide 20 mg tablet 20 mg PO DAILY aspirin [Adult Aspirin Regimen] 81 mg tablet,delayed release (DR/EC) 81 mg PO DAILY meloxicam 7.5 mg tablet 7.5 mg PO DAILY Qty: 90 0RF amlodipine 5 mg Tablet 5 mg PO DAILY rosuvastatin 20 mg Tablet 20 mg PO DAILY Ozempic 2 mg/dose (8 mg/3 mL) pen injector 2 mg SUBCUT .WEEKLY Discharge Order = DC NOW: Discharge Order (Routine); Ordered 07/21/25 Ordered By: Ena Coppola Other Ambulatory Orders: Physical Therapy Eval and Treat Outpatient (Order) Timeframe: 1 Day Facility: [facility] - Location: Physical Therapy [facility] Ordered By: Ena Coppola Referrals: [facility], [Staff Physician] - 07/26/25 3:00 pm Ena Coppola MD [Physician, Orthopedics] - 08/02/25 2:15 pm Discharge Diet: Advance as tolerated and Usual diet Discharge Activity: Increase activity as tolerated, Limit activity as instructed, Use walker/crutches as instructed and As per PT/OT instructions Patient Instructions: Oxycodone/Acetaminophen (By mouth), Aspirin (By mouth), Celecoxib (By mouth), Acute Wound Care (DC), Total Knee Replacement (DC), Opioid Safety, Post Anesthesia Care, Patient Portal & Mikael Instructions Activity Restrictions/Additional Instructions: Weight-bear as tolerated. Ice to left lower extremity. You may shower, but do not submerge your knee in water. If your dressing lifts up and begins to leak, please remove it, otherwise, maintain until you are seen in the office. Weightbearing as tolerated. Home physical therapy for gait training, a mbulation, and strengthening. Outpatient Physical therapy. Discharge Attestations Time Spent in Discharge Care*: greater than 30 min Specific Discharge Activities: educating patient, documenting/other paperwork and evaluating patient/reviewing data Quality Metrics Clinical Quality Measures [ No reported AMI, CVA or VTE this stay] Coding Level of Care Code Acute Code for Chg Fwd Diagnoses Status post revision of total replacement of left knee Z96.652 Chronic knee pain after total replacement of left knee joint M25.562; G89.29; Z96.652
== END 2025-07-21 15:30 | disposition home or self-care (01) | DRG 467 ==
LOC: MEDSURG 19:41
PROVIDERS: Anesthesiology; Nurse Practitioner Gerontology; Admitting Provider Specialist; PCP Nurse Practitioner; Visit Provider Specialist
PROC: 0SPD0JZ Removal of Synthetic Substitute from Left Knee Joint, Open Approach (ICD-10-PCS; principal; 2025-07-20 11:25)
DX: T84.84XA Pain due to internal orthopedic prosthetic devices, implants and grafts, initial encounter (principal); M96.810 Intraoperative hemorrhage and hematoma of a musculoskeletal structure complicating a musculoskeletal system procedure; Y79.8 Miscellaneous orthopedic devices associated with adverse incidents, not elsewhere classified; G89.29 Other chronic pain; Z96.653 Presence of artificial knee joint, bilateral; E78.5 Hyperlipidemia, unspecified; I10 Essential (primary) hypertension; E66.01 Morbid (severe) obesity due to excess calories; Z68.37 Body mass index [BMI] 37.0-37.9, adult; T84.023A Instability of internal left knee prosthesis, initial encounter; M65.962 Unspecified synovitis and tenosynovitis, left lower leg; R73.03 Prediabetes; R00.0 Tachycardia, unspecified; I25.2 Old myocardial infarction; Z79.82 Long term (current) use of aspirin; Z79.85 Long-term (current) use of injectable non-insulin antidiabetic drugs
CPT/HCPCS: 36415; 51702; 73560; 80048; 85014; 85018; 85025; 86850; 86900; 86920; 87070; 87075; 87176; 87205; 88305; 88307; 88311; 97116; 97161; 97165; A4216; A4649; C1713; C1776; J0131; J0666; J0690; J1100; J1171; J2371; J2405; J2704; J3010; J3373; J3490; J7030; J9999; L8699; P9016; P9045

== ENCOUNTER 2025-08-15 12:21 | Emergency (ER) | payer MEDICARE, SELFPAY ==
--- OUTSIDE RECORDS SUMMARY | 2024-06-13 03:00 | XMS_ITS ---
Author Organization [facility] Address [address] [place] [address] Care Team Providers Care Bridge Engineer Name Role Phone Frances HOLLIS, Kate Primary Care Provider Unavaila Bobby Coughlin Unavailable Unavailable Migration, Provider Unavailable Unavailable REASON FOR VISIT EMR-Asher Encounters Encounter Location Date Provider Diagnosis Migrated_Facility 0 0 06/13/2024 Provider Migration Plan Of Treatment No Information Progress Notes * BIMAL RICHARDS MDOB:[birth year] (55 yo F)Acc No.[id number]:06/13/2024 Patient: Td BIMAL DENG :1970 A ge:54 Y S ex:Female [facility] [address] Subjective: * Chief Complaints: * E MR-Asher * * Date:
--- OUTSIDE RECORDS SUMMARY | 2024-06-14 03:00 | XMS_ITS ---
Author Organization [facility] Address [address] [place] [address] Care Team Providers Care Crystal Gazer Name Role Phone Kate Oh Primary Care Provider Unavaila Bobby Coughlin Unavailable Unavailable Migration, Provider Unavailable Unavailable Allergies Allergen (clinical drug ingredient) Drug/Non Drug Allergy documented on EMR Reaction Allergy Type Onset Date Status codeine codeine Unknown Drug Allergy Active REASON FOR VISIT EMR-Asher Encounters Encounter Location Date Provider Diagnosis Migrated_Facility 0 0 06/14/2024 Provider Migration Plan Of Treatment No Information Progress Notes * BIMAL RICHARDS MDOB:[birth year] (55 yo F)Acc No.[id number]:06/14/2024 Patient: Td SOWMYA BIMAL Talavera :1970 A ge:54 Y S ex:Female Address[place], [address] Subjective: * Chief Complaints: * E MR-Asher * Allergies: c odeine: Allergy * * Date:
--- OUTSIDE RECORDS SUMMARY | 2025-08-15 12:26 | XMS_ITS | Clinical Summary ---
Author Organization [employer] Address [address] 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
--- OUTSIDE RECORDS SUMMARY | 2025-08-15 12:26 | XMS_ITS | Patient Health Record ---
Author Organization [facility] Address [address] [place] [address] Care Team Providers Care Money Position Officer Name Role Phone Frances GEOSCIENCES PROFESSOR, Kate Primary Care Provider Unavaila Bobby Coughlin Unavailable Unavailable Reason For Referral No Information Problems Problem Type SNOMED Code ICD Code Onset Dates Problem Status W/U Status Risk Notes Problem Shortness of breath (440576868) Shortness of breath (R06.02) Active confirmed [id number]- Problem Chest pain (36285400) Chest pain, unspecified (R07.9) Active confirmed [id number] 73-Snomed Descripti on:Chest pain Plan Of Treatment No Information Insurance Providers Payer Name Payer Address Payer Phone Subscriber Number Group Number Insured Name Patient Relationship to Insured Coverage Start Date Coverage End Date [place] [address] [place]HE[place] ALVAREZ [phone] [id number] BIMAL RICHARDS Self - patient is the insured 3 [employer] [facility] [address] [place] [address] BIMAL RICHARDS Self - patient is the insured
--- OUTSIDE RECORDS SUMMARY | 2025-08-15 12:26 | XMS_ITS | Clinical Summary ---
[facility] Address [address] [place] [address] Care Team Providers Care Grades 1 Thru 6 Visiting Teacher Name Role Phone Unavailable Primary Care Provider [...]
--- OUTSIDE RECORDS SUMMARY | 2025-08-15 12:26 | XMS_ITS | Patient Health Record ---
Author Organization [facility] Address [address] [place] [phone] Care Team Providers Care Apple Solutions Consultant Name Role Phone Francesca Estrella Unavailable [phone] Allergies No Known Allergies Reason For Referral No Information Medications Medication SIG (Take, Route, Frequency, Duration) Notes Start Date End Date Status Metoprolol Tartrate Active Lisinopril Active Aspirin Active Ozempic (0.25 or 0.5 MG/DOSE) Active Social History Sex Assigned At : Social History Observation Description Sex Assigned At Female Vital Signs Heart Rate 140 /min 10/27/2024 recheck bp and HR., 120/60, HR 120. HR 111 Temperature 98.4 degrees Fahrenheit 10/27/2024 rech tiana bp and HR., 120/60, HR 120. HR 111 Blood pressure diastolic 66 mm Hg 10/27/2024 rec heck bp and HR., 120/60, HR 120. HR 111 Oximetry 95 % 10/27/2024 recheck bp and HR., 120/60, HR 120. HR 111 Blood pressure systolic 120 mm Hg 10/27/2024 rech tiana bp and HR., 120/60, HR 120. HR 111 Encounters Encounter Location Date Provider Diagnosis [facility] [address] [place] [phone] 10/27/2024 Francesca Estrella Heat intolerance R68.89 [facility] [address] [phone] 10/28/2024 Francesca Estrella Assessments Encounter Date Diagnosis (ICD Code) Assessment Notes Treatment Notes Treatment Clinical Notes Section Notes 10/27/2024 Heat intolerance (ICD-10 - R68.89) she is better by time of d/c hr improved. less flushed. no cp, no sob. ... rest, increase fluids.to er if any worsening sx. Plan Of Treatment No Information Insurance Providers Payer Name Payer Address Payer Phone Subscriber Number Group Number Insured Name Patient Relationship to Insured Coverage Start Date [facility]age End Date [facility] [address] [address] [place], [place] [id number] [phone] [id number] BIMAL BUCK Self - patient is the insured 4
[2025-08-15 12:44] VITALS: BP 128/85; PULSE 104; TEMP 36.8; O2SAT 98
[2025-08-15 13:34] LABS: Hematocrit 35.8 % (36-47); Hemoglobin 11.30 g/dL (11.27-16.99); Mean Corpuscular HGB Conc 31.6 g/dL (30-55); Mean Corpuscular Hemoglobin 30.1 pg (27-33); Mean Corpuscular Volume 95.5 fl (85-98); Nucleated Red Blood Cells % 0 %; Platelet Count 318 10^3/cmm (157-399); Red Blood Count 3.75 10^6/uL (3.85-5.65); White Blood Count 10.32 10^3/uL (3.29-11.43)
[2025-08-15 13:55] LABS: Alanine Aminotransferase 30 U/L (0-33); Albumin Level 4.0 g/dL (3.5-5.2); Alkaline Phosphatase 129 U/L (35-105); Anion Gap 17.9 (5-19); Aspartate Amino Transferase 31 U/L (0-32); Blood Urea Nitrogen 7 mg/dL (6-20); Calcium 8.9 mg/dL (8.5-10.5); Carbon Dioxide 23 mmol/L (22-29); Chloride 97 mmol/L (98-107); Globulin 2.9 g/dL (1.3-4.6); Glucose 312 mg/dL (65-115); Osmolality Calculated 288 mOsm/kg (285-295); Potassium 3.9 mmol/L (3.5-5.1); Sodium 134 mmol/L (136-145); Total Protein 6.9 g/dL (6.6-8.7)
--- NOTE | 2025-08-15 15:03 | USR_ITS ---
PROCEDURE INFORMATION: Exam: US Duplex Left Lower Extremity Veins, Limited Exam date and time: 08/15/2025 3:18 PM Age: 55 years old Clinical indication: Pain; Leg, upper and leg, lower; Prior surgery; Surgery date: <1 month; Surgery type: Left knee replacement 07/20; Additional info: Swelling/pain; Post op knee TECHNIQUE: Imaging protocol: Real-time duplex ultrasound of the left extremity with 2-D vogel scale, color Doppler flow and spectral waveform analysis including responses to compression and other maneuvers (when performed) with image documentation. Limited exam focused on the left lower extremity veins. COMPARISON: CT knee LT SERENA [id number] 07/06/2025 4:01 PM FINDINGS: Left deep veins: Unremarkable. The common femoral, femoral, proximal profunda femoral and popliteal veins are patent without thrombus. Normal Doppler waveforms. Normal compressibility and/or augmentation response. Visualized calf veins appear unremarkable, as well. Superficial veins: Greater saphenous vein at the saphenofemoral junction is patent without thrombus. Soft tissues: Unremarkable. US/[place] [id number] IMPRESSION: No evidence of deep vein thrombosis.
--- NOTE | 2025-08-15 15:04 | W.ED.EXTPRO ---
HPI - Extremity Problem General: Chief complaint: Extremity Injury, Lower Stated complaint: L knee replacement on 07/20, redness, swelling Time Seen by Provider: 08/15/25 14:28 Source: patient and family Mode of arrival: ambulatory Limitations: no limitations History of Present Illness: Patient is a 55-year-old female presents to ED today with concerns regarding her left knee. Patient underwent total knee arthroplasty revision by Dr. Coppola on 07/20. She states she followed up with BUNNY Mccallum in clinic on 08/02. She has started physical therapy. Patient feels like her pain and edema is not improving. Family states she had pitting edema in the leg yesterday-this has resolved during my encounter with her. Family also felt like her incision was red yesterday but again this has resolved today. She has not had any drainage out of the incision. No fevers. She continues to ambulate. She has been doing ice. She has been in touch with BUNNY Mccallum who has called her in pain medications and muscle relaxers but she states these are not helping. She feels like she has pain from her hip all the way down to her foot and feels like her leg spasms. She feels like the back of her leg is tight. MD Complaint: extremity pain, extremity swelling, joint swelling and joint pain Pain Consistency: constant Location: left, lower extremity and knee Radiation: none Relieving factors: nothing Associated symptoms: Reports no associated symptoms; Deny chest pain, fever(s) or rash Context: recent surgery/procedure Related Data Home Medications ?Medication ?Instructions ?Recorded ?Confirmed aspirin 81 mg tablet,delayed 81 mg PO DAILY 10/01/19 08/02/25 release (Adult Aspirin Regimen) furosemide 20 mg tablet 20 mg PO DAILY 10/01/19 08/02/25 metoprolol tartrate 50 mg tablet 50 mg PO BID 10/01/19 08/02/25 nitroglycerin 0.4 mg sublingual 0.4 mg sublingual Q5M PRN Chest 10/01/19 08/02/25 tablet Pain potassium chloride 10 mEq 10 meq PO DAILY 10/01/19 08/02/25 tablet,extended release (Klor-Con) ropinirole 0.5 mg tablet 0.5 mg PO DAILY 10/01/19 08/02/25 amlodipine 5 mg tablet 5 mg PO DAILY 07/19/25 08/02/25 rosuvastatin 20 mg tablet 20 mg PO DAILY 07/19/25 08/02/25 semaglutide 2 mg/dose (8 mg/3 mL) 2 mg SUBCUT .WEEKLY 07/19/25 08/02/25 subcutaneous pen injector (Ozempic) Previous Rx's ?Medication ?Instructions ?Recorded meloxicam 7.5 mg tablet 7.5 mg PO DAILY #90 tabs 03/29/25 aspirin 325 mg tablet,delayed 325 mg PO DAILY 30 days #30 tabs 07/21/25 release celecoxib 200 mg capsule 200 mg PO 1XD 30 days #30 caps 07/21/25 chlorzoxazone 500 mg tablet 250 mg (1/2 x 500 mg) PO TID PRN 08/11/25 muscle spasm #21 tabs hydrocodone 7.5 mg-acetaminophen 1 tab PO TID PRN pain 1 week #15 08/11/25 325 mg tablet tabs methocarbamol 500 mg tablet 1,000 mg (2 x 500 mg) PO Q8H #30 08/15/25 tabs prednisone 10 mg tablet 10 mg PO DAILY 6 days #20 tabs 08/15/25 Allergies Allergy/AdvReac Type Severity Reaction Status Date / Time codeine Allergy ALGY-Swell Verified 08/15/25 12:50 Lip/Tongue/Throat lisinopril Allergy ALGY-Swell Verified 08/15/25 12:50 Lip/Tongue/Throat Review of Systems Const: Denies: fever(s), chills, body aches, fatigue or malaise Card: Denies: chest pain Resp: Denies: dyspnea GI: Denies: abdominal pain Musc: Reports: extremity pain, extremity swelling, joint pain, joint swelling and muscle cramps; Denies: neck pain, back pain, joint redness, joint warmth or muscle weakness Skin/Breast: Denies: rash Neuro: Denies: numbness in extremities, weakness in extremities, sensory changes or difficulty walking PFSH ED PFSH: Medical History History of myocardial infarction Essential hypertension Surgical History History of total bilateral knee replacement Surgery: Right and Left total knee arthroplasties in 2018. (4-6 months apart) Surgeon: Dr. Anil Harrison MD in [place], [place] Family History Mother Heart disease Social History Smoking and tobacco/nicotine status: current some day tobacco/nicotine user cigarettes Packs smoked per day: 1 and smokeless tobacco Alcohol intake: current Alcohol intake frequency: holidays/special occasions only Physical Exam Const: COMMON NORMALS: no acute distress, average body habitus, patient oriented x3, no limitations, healthy appearing, alert and well nourished GENERAL APPEARANCE: cooperative ORIENTATION/CONSCIOUSNESS: Yes awake, Yes oriented to person, Yes oriented to place and Yes oriented to time HENMT: COMMON NORMALS: normocephalic and atraumatic HEAD & SCALP: normal to inspection, normocephalic and atraumatic Resp: COMMON NORMALS: normal respiratory effort and clear to auscultation bilaterally AUSCULTATION: clear to auscultation bilaterally Cardio: COMMON NORMALS: regular rate and regular rhythm RATE: regular rate RHYTHM: regular rhythm Back/Pelvis: COMMON NORMALS: thoracic and lumbar spine normal to inspection, no thoracic nor lumbar tenderness, thoraco-lumbar ROM normal and straight leg raise negative bilaterally Extremity: COMMON NORMALS: capillary refill normal GENERAL: Yes normal exam except as noted RIGHT LOWER EXTREMITY: Yes knee joint OTHER: pt has edema to R LE that I feel is appropriate post-op; no pitting edema; her surgical incision looks great-no erythema, drainage; she has normal micro movements of her knee without out of proportion pain; ambulatory here; no obvious calf pain/palpable cords; distal pulses are normal; no ecchymosis noted to the leg Neuro: COMMON NORMALS: patient oriented x3, moves all extremities, no focal motor deficits and no sensory deficits noted SENSORIUM/ORIENTATION: Yes alert, Yes oriented to person, Yes oriented to place and Yes oriented to time Skin: COMMON NORMALS: no rashes or lesions noted GENERAL SKIN EXAM: no rashes or lesions noted Course Consultations: Consultation #1: Spoke to Dr. Coppola and BUNNY Mccallum-they will contact the patient tomorrow to schedule follow up office visit this week; recommended steroids Vital Signs: Vital signs: Vital Signs Temperature 98.2 F 08/15/25 12:44 Pulse Rate 84 08/15/25 16:36 Blood Pressure 126/84 08/15/25 16:36 Pulse Oximetry 100 08/15/25 16:36 Oxygen Delivery Me thod Room Air 08/15/25 12:44 MDM - Extremity (Nontraumatic) Medical Decision Making Patient is a 55-year-old female here with complaints of continued left knee pain following a total knee arthroplasty/revision. Surgery was reportedly difficult. Here, she has normal postoperative swelling. US is negative for DVT. Her surgical incision looks well without signs of infection. She has normal micro movements of the knee with no concern of septic arthritis. Spoke to her orthopedic team who graciously will see her this week for reevaluation. Will place her on steroids per recommendations of her ortho team and try her on a different muscle relaxer as the cyclobenzaprine did not seem to be working. Return to ED precautions discussed. Medical Records I reviewed the patient's medical records. Lab Data I reviewed the patient's lab results. 08/15/25 13:26 08/15/25 13:26 Radiology Impressions Venous Duplex 08/15/25 15:03 IMPRESSION: No evidence of deep vein thrombosis. Laboratory Results WBC 10.32 10^3/uL (3.29-11.43) 08/15/25 13:26 RBC 3.75 10^6/uL (3.85-5.65) L 08/15/25 13:26 Hgb 11.30 g/dL (11.27-16.99) 08/15/25 13:26 Hct 35.8 % (36-47) L 08/15/25 13:26 MCV 95.5 fl (85-98) 08/15/25 13:26 MCH 30.1 pg (27-33) 08/15/25 13:26 MCHC 31.6 g/dL (30-55) 08/15/25 13:26 RDW 14.9 % (12.1-15.1) 08/15/25 13:26 Plt Count 318 10^3/cmm (157-399) 08/15/25 13:26 MPV 9.0 fL (7.4-10.4) 08/15/25 13:26 Neut % (Auto) 66.8 % 08/15/25 13:26 Lymph % (Auto) 19.0 % 08/15/25 13:26 [place] % (Auto) 4.4 % 08/15/25 13:26 Eos % (Auto) 8.6 % 08/15/25 13:26 Baso % (Auto) 0.9 % 08/15/25 13:26 Neut # (Auto) 6.90 10^3/uL (1.8-7.7) 08/15/25 13:26 Lymph # (Auto) 2.0 10^3/uL (0.8-4.8) 08/15/25 13:26 [place] # (Auto) 0.5 10^3/uL (0.2-0.9) 08/15/25 13:26 Eos # (Auto) 0.9 10^3/uL (0.0-0.8) H 08/15/25 13:26 Baso # (Auto) 0.1 10^3/uL (0.0-0.1) 08/15/25 13:26 Nucleated RBC % (auto) 0 % 08/15/25 13:26 Nucleated RBCs # 0.0 /100WBC 08/15/25 13:26 ESR 38 mm/hr (0-15) H 08/15/25 13:26 Sodium 134 mmol/L (136-145) L 08/15/25 13:26 Potassium 3.9 mmol/L (3.5-5.1) 08/15/25 13:26 Chloride 97 mmol/L (98-107) L 08/15/25 13:26 Carbon Dioxide 23 mmol/L (22-29) 08/15/25 13:26 Anion Gap 17.9 (5-19) 08/15/25 13:26 BUN 7 mg/dL (6-20) 08/15/25 13:26 Creatinine 0.6 mg/dL (0.5-0.9) 08/15/25 13:26 GFR Calculation 104.2 mL/min (90-130) 08/15/25 13:26 Glucose 312 mg/dL (65-115) H 08/15/25 13:26 Calculated Osmolality 288 mOsm/kg (285-295) 08/15/25 13:26 Calcium 8.9 mg/dL (8.5-10.5) 08/15/25 13:26 Total Bilirubin 0.4 mg/dL (0.15-1.2) 08/15/25 13:26 AST 31 U/L (0-32) 08/15/25 13:26 ALT 30 U/L (0-33) 08/15/25 13:26 Alkaline Phosphatase 129 U/L (35-105) H 08/15/25 13:26 C-Reactive Protein 5.0 mg/L (0.0-4.9) H 08/15/25 13:26 Total Protein 6.9 g/dL (6.6-8.7) 08/15/25 13:26 Albumin 4.0 g/dL (3.5-5.2) 08/15/25 13:26 Globulin 2.9 g/dL (1.3-4.6) 08/15/25 13:26 No radiology studies performed this visit Discharge Plan Discharge Patient Disposition: Home Clinical Impression: Acute postoperative pain of left knee Condition: Stable Prescriptions: New prednisone 10 mg tablet 10 mg PO DAILY 6 Days Qty: 20 0RF Rx Instructions: Take 5 tabs on day 1-2, 4 tabs on day 3, 3 tabs on day 4, 2 tabs on day 5, and 1 tab on day 6 methocarbamol 500 mg tablet 1,000 mg PO Q8H Qty: 30 0RF No Action metoprolol tartrate 50 mg tablet 50 mg PO BID potassium chloride [Klor-Con 10] 10 mEq tablet extended release 10 meq PO DAILY nitroglycerin 0.4 mg tablet, sublingual 0.4 mg SUBLINGUAL Q5M PRN (Reason: Chest Pain) ropinirole 0.5 mg tablet 0.5 mg PO DAILY Rx Instructions: at bedtime furosemide 20 mg tablet 20 mg PO DAILY aspirin [Adult Aspirin Regimen] 81 mg tablet,delayed release (DR/EC) 81 mg PO DAILY meloxicam 7.5 mg tablet 7.5 mg PO DAILY Qty: 90 0RF hydrocodone-acetaminophen 7.5-325 mg tablet 1 tab PO TID PRN (Reason: pain) 7 Days Qty: 15 0RF chlorzoxazone 500 mg tablet 250 mg PO TID PRN (Reason: muscle spasm) Qty: 21 0RF amlodipine 5 mg Tablet 5 mg PO DAILY rosuvastatin 20 mg Tablet 20 mg PO DAILY Ozempic 2 mg/dose (8 mg/3 mL) pen injector 2 mg SUBCUT .WEEKLY celecoxib 200 mg Capsule 200 mg PO 1XD 30 Days Qty: 30 0RF aspirin 325 mg Tablet,Delayed Release (Dr/Ec) 325 mg PO DAILY 30 Days Qty: 30 0RF Discharge Orders: Discharge ED (Routine); Ordered 08/15/25 Ordered By: Milka Youssef Referrals: Yanira Finn FNP [Primary Care Provider, Nurse Practitioner] Patient Instructions: Patient Portal & Mikael Instructions Activity Restrictions/Additional Instructions: As we discussed, I will switch her cyclobenzaprine muscle relaxer to methocarbamol. Do not take both of these together. Continue to ice and elevate the extremity is much as possible to help with swelling. We will place you on steroids. Your orthopedic team has been contacted today and is planning on reaching out to you tomorrow to help schedule you for a follow-up clinic visit. Print Language: Luxembourger Coding Level of Care Code ED Maintenance Job Titles for Steven Van
[2025-08-15] MEDS: ondansetron 2 mg/ML SDV 2 mL 4 MG IM (15:30)
[2025-08-15] MEDS: HYDROmorphone 0.5 MG/0.5 ML INJ 1 MG IM (15:31)
[2025-08-15 16:36] VITALS: BP 126/84; PULSE 84; O2SAT 100
== END 2025-08-15 16:37 | disposition home or self-care (01) ==
PROVIDERS: Emergency Medicine; Emergency Provider Physician Assistant; PCP Nurse Practitioner
DX: G89.18 Other acute postprocedural pain (principal); Z96.652 Presence of left artificial knee joint; Z79.82 Long term (current) use of aspirin; F17.210 Nicotine dependence, cigarettes, uncomplicated; I10 Essential (primary) hypertension
CPT/HCPCS: 36415; 80053; 85025; 85651; 86140; 93971; 96372; 99284; J1171; J2405

== ENCOUNTER 2025-08-16 10:51 | Outpatient (RCR) | payer MEDICARE, SELFPAY | END 2025-08-18 23:59 | disposition home or self-care (01) | LOC: GPT 10:51 | PROVIDERS: PCP Nurse Practitioner; Visit Provider Specialist | DX: Z98.890 Other specified postprocedural states (principal); Z96.652 Presence of left artificial knee joint | CPT/HCPCS: 97110; 97140; 97161; 99024 ==

== ENCOUNTER → 2025-08-18 09:01 | Outpatient (BNVA) | payer MEDICARE, SELFPAY | PROVIDERS: PCP Nurse Practitioner; Visit Provider Specialist | DX: Z98.890 Other specified postprocedural states (principal); Z96.652 Presence of left artificial knee joint | CPT/HCPCS: 73560; 73565; 99024 ==